=== PATIENT | male | born 1960 | race African-American/Black ===

== ENCOUNTER 2018-08-07 18:10 | Emergency (ER) | payer MEDICAID ==
[~2018-08-07] VITALS: Ht 193 cm; Wt 159.7 kg
[2018-08-07 18:32] VITALS: BP 126/92
== END 2018-08-07 21:00 | disposition home or self-care (01) ==
LOC: ED 18:10
DX: S61.215A Laceration without foreign body of left ring finger without damage to nail, initial encounter (principal); I10 Essential (primary) hypertension; W22.8XXA Striking against or struck by other objects, initial encounter; Y93.89 Activity, other specified; Y92.89 Other specified places as the place of occurrence of the external cause; Y99.8 Other external cause status
CPT/HCPCS: 90715; J2001; J3490

== ENCOUNTER 2018-08-10 12:01 | Emergency (ER) | payer MEDICAID ==
[~2018-08-10] VITALS: Ht 193 cm; Wt 159.7 kg
[2018-08-10 12:20] VITALS: BP 141/70; Ht 193 cm; Wt 159.7 kg
== END 2018-08-10 14:32 | disposition home or self-care (01) ==
LOC: ED 12:01
DX: S61.215D Laceration without foreign body of left ring finger without damage to nail, subsequent encounter (principal); I10 Essential (primary) hypertension; W45.8XXD Other foreign body or object entering through skin, subsequent encounter

== ENCOUNTER 2018-08-21 11:04 | Emergency (ER) | payer MEDICAID ==
[~2018-08-21] VITALS: Ht 193 cm; Wt 160.1 kg
[2018-08-21 11:09] VITALS: Ht 193 cm; Wt 160.1 kg
[2018-08-21 11:33] VITALS: BP 167/90
== END 2018-08-21 11:33 | disposition home or self-care (01) ==
LOC: ED 11:04
DX: S61.215D Laceration without foreign body of left ring finger without damage to nail, subsequent encounter (principal); I10 Essential (primary) hypertension; X58.XXXD Exposure to other specified factors, subsequent encounter